=== PATIENT | male | born 1955 | race Hispanic/Latino ===

== ENCOUNTER 2017-02-26 03:07 | Emergency (ER) | payer SELFPAY ==
[2017-02-26 03:07] VITALS: BMI 25.7
[2017-02-26 03:17] VITALS: BP 137/68; PULSE 98; RESP 16; TEMP 98.6; O2SAT 16
--- NOTE | 2017-02-26 04:49 | ED PDOC ---
HPI: Psych/Substance Abuse Time Seen by Provider: 02/26/17 03:25 Chief Complaint (Nursing): Alcohol Ingestion Chief Complaint (Provider): Alcohol Ingestion History Per: Patient History/Exam Limitations: no limitations Onset/Duration Of Symptoms: Hrs (prior to arrival ) Additional Complaint(s): 03:25 Thiago Basurto, 61 year old male self presents to the ED on 02/26/17 for intoxication. Patient is well known to this provider for multiple previous visits. He commits to alcohol usage. Past Medical History Reviewed: Historical Data, Nursing Documentation, Vital Signs Vital Signs: Last Vital Signs Temp 98.6 F 02/26/17 03:15 Pulse 98 H 02/26/17 03:15 Resp 16 02/26/17 03:15 BP 137/68 02/26/17 03:15 Pulse Ox 16 L 02/26/17 03:15 - Medical History PMH: Anxiety, Atrial Fibrillation, Back Problems (spinal stenosis), Cardia Arrhythmia, COPD, Depression, Fractures (FX OF UPPER LEFT ARM AND HAS TITANIUM PLACED), Gall Bladder Disease, Hepatitis (C), Seizures, Sleep Apnea Denies: Alzheimer's Disease, Anemia, Arthritis, Asthma, Bipolar Disorder, Bronchitis, CHF, Crohn's Disease, Dementia, Diverticulitis, Emphysema, HIV, HTN , Hypercholesterolemia, Hyperthyroidism, Hypothyroidism, Kidney Stones, Migraine , Mitral Valve Prolapse, Osteoporosis, Pancreatitis, Parkinson's Disease, Peripheral Edema, Pneumonia, Post Traumatic Stress Disorder, Chronic Kidney Disease, Schizophrenia, Sickle Cell Disease, Sexually Transmitted Disease, TIA - Surgical History Surgical History: Appendectomy, Cholecystectomy Denies: Coronary Stent, Pacemaker - Family History Family History: States: Unknown Family Hx - Immunization History Hx Tetanus Toxoid Vaccination: No Hx Influenza Vaccination: No Hx Pneumococcal Vaccination: No - Home Medications Home Medications: Ambulatory Orders Medication Instructions Recorded Albuterol HFA [Ventolin HFA 90 2 puff IH [id number] #1 puff 07/31/16 mcg/actuation (8 g)] Albuterol HFA [Ventolin HFA 90 1 - 2 puff IH Q6 PRN #1 inhaler 08/02/16 mcg/actuation (8 g)] Albuterol HFA [Ventolin HFA 90 2 puff IH [id number] PRN #0 puff 08/09/16 mcg/actuation (8 g)] Azithromycin [Zithromax] 250 mg PO DAILY #6 tab 08/09/16 - Allergies Allergies/Adverse Reactions: Allergies Allergy/AdvReac Type Severity Reaction Status Date / Time No Known Allergies Allergy Verified 07/31/16 21:16 Review of Systems ROS Statement: Except As Marked, All Systems Reviewed And Found Negative Physical Exam - Reviewed Nursing Documentation Reviewed: Yes Vital Signs Reviewed: Yes - Physical Exam Appears: Positive for: Non-toxic, No Acute Distress Head Exam: Positive for: ATRAUMATIC, NORMOCEPHALIC Skin: Positive for: Normal Color, Warm, Dry Eye Exam: Positive for: Normal appearance ENT: Positive for: Normal ENT Inspection Neck: Positive for: Normal, Painless ROM Cardiovascular/Chest: Positive for: Regular Rate, Rhythm, Chest Non Tender Respiratory: Positive for: Normal Breath Sounds. Negative for: Respiratory Distress Gastrointestinal/Abdominal: Positive for: Normal Exam, Soft. Negative for: Tenderness Back: Positive for: Normal Inspection Extremity: Positive for: Normal ROM. Negative for: Deformity Neurologic/Psych: Positive for: Alert, Oriented (x3), Other (speech is not slurred ) - ECG O2 Sat by Pulse Oximetry: 16 (RA) Pulse Ox Interpretation: Normal Medical Decision Making Medical Decision Makin:25 Initial Impression: 61 year old intoxicated male with a history of Alcoholism Initial Plan: * Accucheck Stat * Alcohol Serum Stat * Reevaluation 5:37 Sobriety Statement: At 5:37 patient is awake, oriented, and alert x3. The patient has a steady gate , clear speech, and is stable for discharge. Condition: Improved Diagnosis: Alcohol Intoxication Scribe Attestation: Documented by Viri Pressley, acting as a scribe for Ted Rodriguez MD. Provider Scribe Attestation: All medical record entries made by the Scribe were at my direction and personally dictated by me. I have reviewed the chart and agree that the record accurately reflects my personal performance of the history, physical exam, medical decision making, and the department course for this patient. I have also personally directed, reviewed, and agree with the discharge instructions and disposition. Disposition - Clinical Impression Clinical Impression: Alcohol intoxication, Alcohol abuse - Disposition Disposition Time: 05:37 Condition: STABLE Instructions: Alcohol Dependence (ED)
== END 2017-02-26 05:45 | disposition home or self-care (01) ==
LOC: H.ER 03:07
DX: F10.129 Alcohol abuse with intoxication, unspecified (principal); F32.9 Major depressive disorder, single episode, unspecified; F41.9 Anxiety disorder, unspecified; G47.30 Sleep apnea, unspecified; I48.91 Unspecified atrial fibrillation; J44.9 Chronic obstructive pulmonary disease, unspecified

== ENCOUNTER 2017-02-26 08:44 | Observation (INO) | payer SELFPAY ==
[2017-02-26 08:48] VITALS: BMI 23.7
[2017-02-26] MEDS ORDERED: Multivitamin (MVI) 10 ML, Folic Acid 1 MG, Thiamine 100 MG in Dextrose 5%/0.45% NS 1,00... IV ONE (09:28)
--- NOTE | 2017-02-26 09:29 | ED PDOC ---
HPI: General Adult Time Seen by Provider: 02/26/17 09:17 Chief Complaint (Nursing): Shortness Of Breath Chief Complaint (Provider): Shortness Of Breath History Per: Patient History/Exam Limitations: no limitations Onset/Duration Of Symptoms: Days Current Symptoms Are (Timing): Still Present Additional Complaint(s): 61 y/o male presents to the emergency department with a complaint of generalized weakness. Associated with being tired, confused (could not find the main avenue), shortness of breath, chills, and intermittent diarrhea. Denies any further complaints or allergies. Patient was in the ER last night and was discharged after sobriety. Of note, patient is homeless and is experiencing these symptoms after non compliance of following up with referred clinics with COPD diagnose. Patient is homeless. Past Medical History Reviewed: Historical Data, Nursing Documentation, Vital Signs Vital Signs: Last Vital Signs Temp 97.8 F 02/26/17 08:47 Pulse 77 02/26/17 08:47 Resp 18 02/26/17 08:47 BP 133/67 02/26/17 08:47 Pulse Ox 96 02/26/17 11:27 - Medical History PMH: Anxiety, Atrial Fibrillation, Back Problems (spinal stenosis), Cardia Arrhythmia, COPD, Depression, Fractures (FX OF UPPER LEFT ARM AND HAS TITANIUM PLACED), Gall Bladder Disease, Hepatitis (C), Seizures, Sleep Apnea Denies: Alzheimer's Disease, Anemia, Arthritis, Asthma, Bipolar Disorder, Bronchitis, CHF, Crohn's Disease, Dementia, Diverticulitis, Emphysema, HIV, HTN , Hypercholesterolemia, Hyperthyroidism, Hypothyroidism, Kidney Stones, Migraine , Mitral Valve Prolapse, Osteoporosis, Pancreatitis, Parkinson's Disease, Peripheral Edema, Pneumonia, Post Traumatic Stress Disorder, Chronic Kidney Disease, Schizophrenia, Sickle Cell Disease, Sexually Transmitted Disease, TIA - Surgical History Surgical History: Appendectomy, Cholecystectomy Denies: Coronary Stent, Pacemaker - Family History Family History: States: Unknown Family Hx - Social History Current smoker - smoking cessation education provided: Yes Alcohol: > 2 Drinks/Day Drugs: Denies - Immunization History Hx Tetanus Toxoid Vaccination: No Hx Influenza Vaccination: No Hx Pneumococcal Vaccination: No - Home Medications Home Medications: Ambulatory Orders Medication Instructions Recorded Albuterol HFA [Ventolin HFA 90 2 puff IH [id number] #1 puff 07/31/ mcg/actuation (8 g)] Albuterol HFA [Ventolin HFA 90 1 - 2 puff IH Q6 PRN #1 inhaler 08/02/16 mcg/actuation (8 g)] Albuterol HFA [Ventolin HFA 90 2 puff IH [id number] PRN #0 puff 08/09/16 mcg/actuation (8 g)] Azithromycin [Zithromax] 250 mg PO DAILY #6 tab 08/09/16 - Allergies Allergies/Adverse Reactions: Allergies Allergy/AdvReac Type Severity Reaction Status Date / Time No Known Allergies Allergy Verified 07/31/16 21:16 Review of Systems ROS Statement: Except As Marked, All Systems Reviewed And Found Negative Constitutional: Positive for: Chills. Negative for: Other (No allergies) Respiratory: Positive for: Shortness of Breath Gastrointestinal: Positive for: Diarrhea (intermittent) Neurological: Positive for: Confusion Physical Exam - Reviewed Nursing Documentation Reviewed: Yes Vital Signs Reviewed: Yes - Physical Exam Appears: Positive for: Non-toxic, No Acute Distress Head Exam: Positive for: ATRAUMATIC, NORMOCEPHALIC Skin: Positive for: Normal Color, Warm, Dry. Negative for: Rash Cardiovascular/Chest: Positive for: Regular Rate, Rhythm. Negative for: Murmur Respiratory: Positive for: Normal Breath Sounds (Good air entry b/l). Negative for: Accessory Muscle Use, Rales, Wheezing, Respiratory Distress Gastrointestinal/Abdominal: Positive for: Normal Exam, Soft. Negative for: Tenderness Extremity: Positive for: Normal ROM. Negative for: Pedal Edema Neurologic/Psych: Positive for: Alert, Oriented (x3) - Laboratory Results Result Diagrams: 02/26/17 09:50 02/26/17 12:25 - ECG O2 Sat by Pulse Oximetry: 99 (RA) Pulse Ox Interpretation: Normal Medical Decision Making Medical Decision Making: Time: 9:17 Initial impression: Generalized weakness with hx of EOTH abuse Initial plan: --Alcohol Serum Stat --COMP Metabolic Panel --ED Urine Dipstick (POC) --CBC w. differential --Dextrose 5% 1,000 ml IV 200 mls/hr --Revaluation Scribe Attestation: Documented by Evon Sears, acting as a scribe for Ree Dhillon MD. Provider Scribe Attestation: All medical record entries made by the Scribe were at my direction and personally dictated by me. I have reviewed the chart and agree that the record accurately reflects my personal performance of the history, physical exam, medical decision making, and the department course for this patient. I have also personally directed, reviewed, and agree with the discharge instructions and disposition. 3.00 p: lab shows improvement in labs even before the 2nd liter of IVF. He is feeling better .Will discharge. Disposition - Clinical Impression Clinical Impression: Dehydration - Patient ED Disposition Is Patient to be Admitted: No Doctor Will See Patient In The: Office Counseled Patient/Family Regarding: Diagnosis, Need For Followup - Disposition Disposition: Routine/Home Disposition Time: 15:22 Condition: IMPROVED - POA Present On Arrival: None
[2017-02-26 10:28] LABS: ALB/GLOB RATIO 1.5 (1.0-2.1); ALCOHOL SERUM 100 mg/dl (0-10); ALKALINE PHOSPHATASE 78 U/L (38-126); ALT/SGPT 32 U/L (21-72); AST/SGOT 40 U/L (17-59); BLOOD UREA NITROGEN 24 mg/dl (9-20); CALCIUM 8.4 mg/dL (8.4-10.2); CARBON DIOXIDE 15 mmol/L (22-30); CHLORIDE 108 mmol/L (98-107); GFR AFRICAN-AMERICAN > 60; GLUCOSE,RANDOM 121 mg/dL (75-110); SODIUM 144 mmol/l (132-148); TOTAL PROTEIN 7.4 G/DL (6.3-8.2)
[2017-02-26 11:00] LABS: BASO # 0.1 K/uL (0.0-0.2); BASO % 0.3 % (0.0-2.0); EOS % 0.2 % (0.0-4.0); HEMATOCRIT 45.4 % (35.0-51.0); LYMPH # 1.3 K/uL (1.0-4.3); LYMPH % 7.6 % (20.0-40.0); MEAN CORPUSCULAR HEMOGLOBIN 29.6 pg (27.0-31.0); MEAN CORPUSCULAR HGB CONC 32.9 g/dL (33.0-37.0); MEAN PLATELET VOLUME 7.3 fl (7.2-11.7); MONO # 0.8 K/uL (0.0-0.8); MONO % 4.8 % (0.0-10.0); NEUT # 14.8 K/uL (1.8-7.0); NEUT % 87.1 % (50.0-75.0); PLATELET COUNT 293 K/uL (130-400); RED CELL DISTRIBUTION WIDTH 15.5 % (11.5-14.5)
[2017-02-26 13:14] LABS: BLOOD UREA NITROGEN 22 mg/dl (9-20); CALCIUM 8.1 mg/dL (8.4-10.2); CARBON DIOXIDE 18 mmol/L (22-30); CHLORIDE 107 mmol/L (98-107); GFR AFRICAN-AMERICAN > 60; GLUCOSE,RANDOM 219 mg/dL (75-110); POTASSIUM 4.2 MMOL/L (3.6-5.0); SODIUM 137 mmol/l (132-148)
--- NOTE | 2017-02-26 13:56 | RAD ---
HISTORY: elevated WBC COMPARISON: Chest x-ray performed 08/09/16 TECHNIQUE: Chest PA and lateral FINDINGS: LUNGS: Large retrocardiac opacity with air-fluid level consistent with hiatal hernia. Please note that chest x-ray has limited sensitivity for the detection of pulmonary masses. PLEURA: No significant pleural effusion identified. No definite pneumothorax . CARDIOVASCULAR: The cardiomediastinal silhouette appears within normal limits of size. OSSEOUS STRUCTURES: No acute osseous abnormality identified. VISUALIZED UPPER ABDOMEN: Unremarkable. OTHER FINDINGS: None. IMPRESSION: Large retrocardiac opacity re-identified with air-fluid level consistent with hiatal hernia.
[2017-02-26] MEDS ORDERED: Sodium Chloride 0.9% 1,000 ML IV STA (14:06)
[2017-02-26 15:14] LABS: NEUTROPHIL 89 % (42-75); TOTAL CELLS COUNTED 100
[2017-02-26 15:18] LABS: LARGE PLATELETS PRESENT
[2017-02-26 16:12] VITALS: BP 132/74; PULSE 86; RESP 20; TEMP 98.6; O2SAT 98
--- NOTE | 2017-03-04 09:20 | CARD ---
APPROVED REPORT EKG Measurement Heart [id number] <Conclusion> Sinus rhythm with premature supraventricular complexes Otherwise normal ECG
== END 2017-02-26 15:25 | disposition home or self-care (01) ==
LOC: H.ER 08:44 → SUPCPDRO 08:44 → H.EROBSV 10:53
PROVIDERS: ADMIT Emergency Medicine; ATTEND Emergency Medicine
DX: E86.0 Dehydration (principal); F17.200 Nicotine dependence, unspecified, uncomplicated; G47.30 Sleep apnea, unspecified; I48.91 Unspecified atrial fibrillation; J44.9 Chronic obstructive pulmonary disease, unspecified; Z59.0 Homelessness; Z91.19 Patient's noncompliance with other medical treatment and regimen

== ENCOUNTER 2017-03-11 19:58 | Observation (INO) | payer SELFPAY ==
[2017-03-11] MEDS ORDERED: TDAP Vaccine 0.5 mL Syr IM ONE (21:06)
--- NOTE | 2017-03-11 21:33 | ED PDOC ---
HPI: General Adult Time Seen by Provider: 03/11/17 20:29 Chief Complaint (Nursing): Trauma History Per: Patient Additional Complaint(s): Pt. brought in by EMS for public intoxication. Pt. admits to drinking alcohol. Pt. does not remember falling. Past Medical History Reviewed: Historical Data, Nursing Documentation, Vital Signs Vital Signs: Last Vital Signs Temp 98.2 F 03/11/17 20:01 Pulse 65 03/12/17 00:32 Resp 16 03/12/17 00:32 BP 129/66 03/12/17 00:32 Pulse Ox 98 03/12/17 00:32 - Family History Family History: States: No Known Family Hx - Allergies Allergies/Adverse Reactions: Allergies Allergy/AdvReac Type Severity Reaction Status Date / Time Unobtainable Allergy Verified 03/11/17 20:04 Review of Systems Review Of Systems: ROS cannot be obtained secondary to pt's inabilty to answer questions. Physical Exam - Reviewed Nursing Documentation Reviewed: Yes Vital Signs Reviewed: Yes - Physical Exam Appears: Positive for: Well, Non-toxic, No Acute Distress Head Exam: Negative for: ATRAUMATIC (superficial abrasion noted to L side of forehead and L zygomatic area with minimal swelling), NORMAL INSPECTION, NORMOCEPHALIC Skin: Positive for: Normal Color, Warm, DRY Eye Exam: Positive for: EOMI, Normal appearance, PERRL ENT: Positive for: Normal ENT Inspection, TM Is/Are (no hemotympanum b/l) Neck: Positive for: Normal, Painless ROM Cardiovascular/Chest: Positive for: Regular Rate, Rhythm Respiratory: Positive for: CNT, Normal Breath Sounds Gastrointestinal/Abdominal: Positive for: Normal Exam, Soft. Negative for: Tenderness Back: Positive for: Normal Inspection. Negative for: L CVA Tenderness, R CVA Tenderness, Vertebral Tenderness (including cervical area) Extremity: Positive for: Normal ROM, Other (L knee with minimal swelling and abrasions without tenderenss) Neurologic/Psych: Positive for: Alert, Oriented, Other (slurred speech). Negative for: Aphasia, Facial Droop - ECG O2 Sat by Pulse Oximetry: 97 ED OBSERVATION Discharge: Yes Date of observation admission: 03/11/17 Time of observation admission: 21:33 - Observation admission statement Patient is being placed in observation because:: ETOH - Progress Note Progress Note: 03/11/17 21:33 CT head, cervical spine, maxillofacial ordered. Pt. attempting to get out of bed. Restraints ordered. Haldol 5mg IM, ativan 2mg IM. 03/12/17 2[address] comfortably. Easily ar[address]able. [address] head, cervical spine, maxillofacial w/o contrast: nothing acute 03/12/17 05:50 Pt. AOx3. Denies knee pain. Pt. with steady unassisted gait. FROM actively of both knees. Disposition - Clinical Impression Clinical Impression: Head injury, Alcohol intoxication - Patient ED Disposition Is Patient to be Admitted: No - Disposition Disposition: Routine/Home Disposition Time: 05:53 Condition: IMPROVED
[2017-03-11 23:21] VITALS: TEMP 98.2
--- NOTE | 2017-03-12 00:29 | CT ---
EXAM: CT Head Without Intravenous Contrast CLINICAL HISTORY: 61 years old, male; Injury or trauma; Fall; Initial encounter; Concussion / head injury TECHNIQUE: Axial computed tomography images of the head/brain without intravenous contrast. This CT exam was performed using one or more of the following dose reduction techniques: automated exposure control, adjustment of the mA and/or kV according to patient size, and/or use of iterative reconstruction technique. Coronal and sagittal reformatted images were created and reviewed. EXAM DATE/TIME: 03/11/2017 9:05 PM COMPARISON: There are no prior studies for comparison. FINDINGS: Artifacts: Streak artifact degrades image quality. Motion artifact degrades image quality. Brain: There is prominence of sulci, gyri and ventricles. There is no midline shift. There are no intra-axial or extra axial mass lesions or areas of hemorrhage. Rebollar-white differentiation is maintained. Ventricles: See above. Bony structures: Cranial vault is intact. There is mild deformity of the nasal bone. Soft tissues: There is left frontal scalp swelling with laceration. Sinuses: There is no acute sinusitis. There is mucoperiosteal thickening in the sinuses. Ears and mastoids: Middle ears and mastoids unremarkable. Orbits: Orbital contents are unremarkable. IMPRESSION: No acute intracranial abnormality
--- NOTE | 2017-03-12 00:36 | CT ---
EXAM: CT Maxillofacial Without Intravenous Contrast CLINICAL HISTORY: 61 years old, male; Injury or trauma; Fall; Initial encounter; Concussion /head injury; Without loss of consciousness TECHNIQUE: Axial computed tomography images of the face without intravenous contrast. This CT exam was performed using one or more of the following dose reduction techniques: automated exposure control, adjustment of the mA and/or kV according to patient size, and/or use of iterative reconstruction technique. Coronal and sagittal reformatted images were created and reviewed. EXAM DATE/TIME: 03/11/2017 9:06 PM COMPARISON: There are no prior studies for comparison. FINDINGS: Bones/joints: There is deformity of the left nasal bone, age indeterminate. There are no facial bone fractures. Upper cervical spine is difficult to evaluate due to patient positioning. Soft tissues: There is left frontal scalp swelling. There are no facial masses. Orbits: Orbital contents are unremarkable. Sinuses: There is mucoperiosteal thickening in the sinuses. There are no air-fluid levels. There is a small right frontal osteoma. Brain: No focal abnormalities are seen in visualized portion of the brain. Other findings: Motion artifact degrades image quality. IMPRESSION: Age-indeterminate deformity of the nasal bone, facial bones are otherwise unremarkable; minimal sinus disease
--- NOTE | 2017-03-12 00:42 | CT ---
EXAM: CT Cervical Spine Without Intravenous Contrast CLINICAL HISTORY: 61 years old, male; Injury or trauma; Fall; Initial encounter; Concussion /head injury TECHNIQUE: Axial computed tomography images of the cervical spine without intravenous contrast. This CT exam was performed using one or more of the following dose reduction techniques: automated exposure control, adjustment of the mA and/or kV according to patient size, and/or use of iterative reconstruction technique. Coronal and sagittal reformatted images were created and reviewed. EXAM DATE/TIME: 03/11/2017 9:06 PM COMPARISON: There are no prior studies for comparison. FINDINGS: Limitations: Evaluation of the cervical spine is limited by patient positioning. Vertebrae: There is straightening of the cervical lordosis. There is no prevertebral soft tissue swelling. Vertebral bodies are intact. Posterior elements are intact. Allowing for bending and rotation, facet joints align anatomically. There is mild disc space narrowing posteriorly at multiple levels. There is C5-6 disc disease with endplate sclerosis and Schmorl's nodes. Mineralization is normal Discs/spinal canal/neural foramina: See above. Soft tissues: See above. Lung apices: Unremarkable Airway: Airway is patent. IMPRESSION: Limited by patient positioning, no fracture seen
[2017-03-12 06:05] VITALS: BP 136/79; PULSE 68; RESP 17; O2SAT 98
== END 2017-03-12 05:53 | disposition home or self-care (01) ==
LOC: EDBD 19:58 → H.ER 19:58 → MERGE 21:07 → H.EROBSV 21:07
PROVIDERS: ADMIT Emergency Medicine; ATTEND Emergency Medicine
DX: S09.90XA Unspecified injury of head, initial encounter (principal); F10.129 Alcohol abuse with intoxication, unspecified; Y90.8 Blood alcohol level of 240 mg/100 ml or more
CPT/HCPCS: 36415; 70450; 70486; 72125; 82948; 90471; 90715; 96372; 99285; G0378; G0480; J1630; J2060

== ENCOUNTER 2017-07-02 09:43 | Emergency (ER) | payer MEDICAID ==
[2017-07-02 09:44] VITALS: BMI 23.7
[2017-07-02] MEDS ORDERED: Iohexol 240 (50 ml) PO ONE (09:58)
[2017-07-02] MEDS ORDERED: Sodium Chloride 0.9% 1,000 ML IV STA (09:58)
[2017-07-02] MEDS ORDERED: Iohexol 240 (50 ml) ONE (10:26)
[2017-07-02 10:29] LABS: BASO % 0.3 % (0.0-2.0); EOS # 0.2 K/uL (0.0-0.7); HEMATOCRIT 45.8 % (35.0-51.0); LYMPH # 1.5 K/uL (1.0-4.3); LYMPH % 19.1 % (20.0-40.0); MEAN CELL VOLUME 90.9 fl (80.0-94.0); MEAN CORPUSCULAR HEMOGLOBIN 30.3 pg (27.0-31.0); MEAN CORPUSCULAR HGB CONC 33.4 g/dL (33.0-37.0); MEAN PLATELET VOLUME 7.9 fl (7.2-11.7); MONO # 0.6 K/uL (0.0-0.8); MONO % 7.8 % (0.0-10.0); NEUT # 5.4 K/uL (1.8-7.0); NEUT % 70.8 % (50.0-75.0); NRBC % 0.1 % (0.0-0.0); RED CELL DISTRIBUTION WIDTH 14.9 % (11.5-14.5)
--- NOTE | 2017-07-02 10:31 | ED PDOC ---
HPI: Abdomen Time Seen by Provider: 07/02/17 09:53 Chief Complaint (Nursing): Abdominal Pain Chief Complaint (Provider): Inguinal Pain History Per: Patient History/Exam Limitations: no limitations Onset/Duration Of Symptoms: Hrs Current Symptoms Are (Timing): Still Present Additional Complaint(s): Thiago Basurto, a 61 year old male, presents to the ED complaining of inguinal pain due to hernia. The patient reports that he was unable to reduce this morning. Denies nausea, vomiting. Patient is able to past gas. Past Medical History Reviewed: Historical Data, Nursing Documentation, Vital Signs - Medical History PMH: Anxiety, Atrial Fibrillation, Back Problems (spinal stenosis), Cardia Arrhythmia, COPD, Depression, Fractures (FX OF UPPER LEFT ARM AND HAS TITANIUM PLACED), Gall Bladder Disease, Hepatitis (C), Seizures, Sleep Apnea Denies: Alzheimer's Disease, Anemia, Arthritis, Asthma, Bipolar Disorder, Bronchitis, CHF, Crohn's Disease, Dementia, Diverticulitis, Emphysema, HIV, HTN , Hypercholesterolemia, Hyperthyroidism, Hypothyroidism, Kidney Stones, Migraine , Mitral Valve Prolapse, Osteoporosis, Pancreatitis, Parkinson's Disease, Peripheral Edema, Pneumonia, Post Traumatic Stress Disorder, Chronic Kidney Disease, Schizophrenia, Sickle Cell Disease, Sexually Transmitted Disease, TIA - Surgical History Surgical History: Appendectomy, Cholecystectomy Denies: Coronary Stent, Pacemaker - Family History Family History: States: Unknown Family Hx - Immunization History Hx Tetanus Toxoid Vaccination: No Hx Influenza Vaccination: No Hx Pneumococcal Vaccination: No - Home Medications Home Medications: Ambulatory Orders Medication Instructions Recorded Albuterol HFA [Ventolin HFA 90 2 puff IH [id number] #1 puff 07/31/16 mcg/actuation (8 g)] Albuterol HFA [Ventolin HFA 90 1 - 2 puff IH Q6 PRN #1 inhaler 08/02/16 mcg/actuation (8 g)] Albuterol HFA [Ventolin HFA 90 2 puff IH [id number] PRN #0 puff 08/09/16 mcg/actuation (8 g)] Azithromycin [Zithromax] 250 mg PO DAILY #6 tab 08/09/16 Ciprofloxacin HCl [Cipro] 500 mg PO BID #20 tab 07/02/17 - Allergies Allergies/Adverse Reactions: Allergies Allergy/AdvReac Type Severity Reaction Status Date / Time No Known Allergies Allergy Verified 07/31/16 21:16 Review of Systems ROS Statement: Except As Marked, All Systems Reviewed And Found Negative Genitourinary Male: Positive for: Other (Inguinal Pain due to Hernia.) Physical Exam - Reviewed Nursing Documentation Reviewed: Yes Vital Signs Reviewed: Yes - Physical Exam Appears: Positive for: Non-toxic, No Acute Distress Head Exam: Positive for: ATRAUMATIC, NORMAL INSPECTION, NORMOCEPHALIC Skin: Positive for: Normal Color, Warm, Dry. Negative for: Rash Eye Exam: Positive for: Normal appearance, EOMI, PERRL. Negative for: Nystagmus ENT: Positive for: Normal ENT Inspection Neck: Positive for: Normal, Painless ROM, Supple Cardiovascular/Chest: Positive for: Regular Rate, Rhythm, Chest Non Tender. Negative for: Tachycardia Respiratory: Positive for: Normal Breath Sounds. Negative for: Rales, Rhonchi, Wheezing, Respiratory Distress Gastrointestinal/Abdominal: Positive for: Bowel Sounds, Soft, Hernia (right inguinal hernia protruding; tender and able to reduce.). Negative for: Tenderness, Guarding, Rebound Extremity: Positive for: Normal ROM. Negative for: Tenderness, Deformity, Swelling Neurologic/Psych: Positive for: Alert, Oriented - Laboratory Results Result Diagrams: 07/02/17 10:20 07/02/17 10:20 Medical Decision Making Medical Decision Makin Initial Impression: 61 year old male presenting with inguinal hernia Initial plan: * CT ABD/PELVIS PO and IV Contrast * Comp metabolic Panel * CBC * NS 1000mls IV 1000mls/hr * Omnipaque 50ml PO * Reevaluation Scribe Attestation Documented by Adelina Sinclair acting as a scribe for Charles Dean MD. Provider Attestation: All medical record entries made by the Scribe were at my direction and personally dictated by me. I have reviewed the chart and agree that the record accurately reflects my personal performance of the history, physical exam, medical decision making, and the department course for this patient. I have also personally directed, reviewed, and agree with the discharge instructions and disposition. Disposition - Clinical Impression Clinical Impression: Inguinal hernia without obstruction or gangrene, Colitis - Patient ED Disposition Is Patient to be Admitted: No Counseled Patient/Family Regarding: Studies Performed, Diagnosis, Need For Followup, Rx Given - Disposition Referrals: [facility] [Outside] Disposition: Routine/Home Disposition Time: 13:57 Condition: FAIR Prescriptions: Ciprofloxacin HCl [Cipro] 500 mg PO BID #20 tab Instructions: Inguinal Hernia (ED), Colitis (ED) Forms: [employer] (Indonesian)
[2017-07-02 10:35] LABS: WHITE BLOOD COUNT 7.6 K/uL (4.8-10.8)
[2017-07-02 10:42] LABS: ALB/GLOB RATIO 1.4 (1.0-2.1); ALKALINE PHOSPHATASE 60 U/L (38-126); ALT/SGPT 27 U/L (21-72); AST/SGOT 27 U/L (17-59); BILIRUBIN,TOTAL 1.7 mg/dl (0.2-1.3); BLOOD UREA NITROGEN 16 mg/dl (9-20); CALCIUM 9.1 mg/dL (8.4-10.2); CARBON DIOXIDE 25 mmol/L (22-30); CHLORIDE 108 mmol/L (98-107); GFR AFRICAN-AMERICAN > 60; GLUCOSE,RANDOM 84 mg/dL (75-110); SODIUM 148 mmol/l (132-148)
[2017-07-02 10:43] LABS: POTASSIUM 5.4 MMOL/L (3.6-5.0)
[2017-07-02] MEDS ORDERED: Iohexol 300 100 ML IJ ONE (13:01)
[2017-07-02] MEDS ORDERED: Sodium Chloride 0.9% 50 ML IV ONE (13:01)
--- NOTE | 2017-07-02 13:55 | CT ---
PROCEDURE: CT Abdomen and Pelvis with contrast HISTORY: abd pain COMPARISON: Comparison is made to 05/18/2016 TECHNIQUE: Contrast dose: 95 cc of Omnipaque 300. Axial and reformatted coronal and sagittal CT images of the abdomen and pelvis were obtained after IV and oral contrast administration. Radiation dose: Total exam DLP = 857.03 mGy-cm. This CT exam was performed using one or more of the following dose reduction techniques: Automated exposure control, adjustment of the mA and/or kV according to patient size, and/or use of iterative reconstruction technique. FINDINGS: LOWER THORAX: No evidence of acute pathology at the lung bases. Again seen is large hiatus hernia contains the entire stomach. The large hiatus hernia also contains part of the transverse colon. LIVER: No evidence of acute pathology at the liver. GALLBLADDER AND BILE DUCTS: Unremarkable. PANCREAS: Unremarkable. No gross lesion or ductal dilatation. SPLEEN: Unremarkable. ADRENALS: Unremarkable. No mass. KIDNEYS AND URETERS: Unremarkable. No hydronephrosis. No solid mass. VASCULATURE: Unremarkable. No aortic aneurysm. BOWEL: There is diffuse thickening of the cecum and proximal ascending colon seen at the right mid abdomen image 95 series 3. The possibility of colitis should be considered. No evidence of high-grade bowel obstruction. Segmental portion of the transverse colon is herniated in the large hiatus hernia without evidence of obstruction or cart serration APPENDIX: There is no evidence of appendicitis. PERITONEUM: There is swirled appearance of the mesenteric artery specially at the mid and upper abdomen. . No free fluid. No free air. LYMPH NODES: Mildly enlarged mesenteric lymph nodes seen at the mid and upper abdomen. BLADDER: Unremarkable. REPRODUCTIVE: Prostate is mildly enlarged. BONES: Heterogeneous attenuation of the osseous structure noted without evidence of acute pathology. Severe degenerative changes at L5-S1 noted. OTHER FINDINGS: None. IMPRESSION: Diffuse wall thickening of the cecum and proximal ascending colon may represent colitis. Mild to moderate wall thickening of the terminal ileum also noted. Mildly enlarged mesenteric lymph nodes at the mid and upper abdomen noted. Large hiatus hernia contains stomach and portion of transverse colon without evidence of obstruction or incarceration. swirled appearance of the mesenteric artery at the mid to upper abdomen suspicious for internal hernia.
== END 2017-07-02 15:06 | disposition home or self-care (01) ==
LOC: H.ER 09:43
DX: K40.90 Unilateral inguinal hernia, without obstruction or gangrene, not specified as recurrent (principal)
CPT/HCPCS: 74177; 80053; 85025; 99282; J7040; Q9966; Q9967

== ENCOUNTER 2018-02-08 01:45 | Emergency (ER) | payer OTHER ==
[2018-02-08 01:45] VITALS: BMI 25.7
--- NOTE | 2018-02-08 02:10 | ED PDOC ---
HPI: Psych/Substance Abuse Chief Complaint (Provider): ETOH History Per: Patient, EMS History/Exam Limitations: intoxication Additional Complaint(s): 62 y/o male brought in by EMS for alcohol intoxication. [place]y [place]. Patient agitated upon arrival, uncooperative. 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 <Kika Haynes C - Last Filed: 02/08/18 05:48> <Therese Redmond A - Last Filed: 02/09/18 11:38> Chief Complaint (Nursing): Alcohol Ingestion Past Medical History Reviewed: Historical Data, Nursing Documentation, Vital Signs Vital Signs: Last Vital Signs Temp 98.3 F 02/08/18 01:51 Pulse 75 02/08/18 01:51 Resp 17 02/08/18 01:51 BP 95/63 L 02/08/18 01:51 Pulse Ox 96 02/08/18 01:51 - Medical History PMH: Anxiety, Atrial Fibrillation, Back Problems (spinal stenosis), Cardia Arrhythmia, COPD, Depression, Fractures (FX OF UPPER LEFT ARM AND HAS TITANIUM PLACED), Gall Bladder Disease, Hepatitis (C), Seizures, Sleep Apnea Denies: Alzheimer's Disease, Anemia, Arthritis, Asthma, Bipolar Disorder, Bronchitis, CHF, Crohn's Disease, Dementia, Diverticulitis, Emphysema, HIV (as per patient), HTN, Hypercholesterolemia, Hyperthyroidism, Hypothyroidism, Kidney Stones, Migraine, Mitral Valve Prolapse, Osteoporosis, Pancreatitis, Parkinson's Disease, Peripheral Edema, Pneumonia, Post Traumatic Stress Disorder , Chronic Kidney Disease, Schizophrenia, Sickle Cell Disease, Sexually Transmitted Disease, TIA - Surgical History Surgical History: Appendectomy, Cholecystectomy Denies: Coronary Stent, Pacemaker - Family History Family History: States: Unknown Family Hx - Immunization History Hx Tetanus Toxoid Vaccination: No Hx Influenza Vaccination: No Hx Pneumococcal Vaccination: No <Kika Haynes - Last Filed: 02/08/18 05:48> Vital Signs: Last Vital Signs Temp 98.0 F 02/08/18 13:45 Pulse 78 02/08/18 13:45 Resp 16 02/08/18 13:45 BP 122/85 02/08/18 13:45 Pulse Ox 96 02/08/18 13:45 <Therese Redmond A - Last Filed: 02/09/18 11:38> - Home Medications Home Medications: Ambulatory Orders Medication Instructions Recorded Azithromycin [Z-Claude] 250 mg PO DAILY #6 tab 10/21/17 - Allergies Allergies/Adverse Reactions: Allergies Allergy/AdvReac Type Severity Reaction Status Date / Time No Known Allergies Allergy Verified 07/31/16 21:16 Review of Systems ROS Statement: Except As Marked, All Systems Reviewed And Found Negative <Kika Haynes - Last Filed: 02/08/18 05:48> Physical Exam - Reviewed Nursing Documentation Reviewed: Yes Vital Signs Reviewed: Yes - Physical Exam Appears: Positive for: Well, Non-toxic, No Acute Distress Head Exam: Positive for: ATRAUMATIC, NORMAL INSPECTION, NORMOCEPHALIC Skin: Positive for: Normal Color Eye Exam: Positive for: Normal appearance ENT: Positive for: Normal ENT Inspection Cardiovascular/Chest: Positive for: Regular Rate, Rhythm Respiratory: Positive for: Normal Breath Sounds Pulses-Radial (L): 2+ Pulses-Radial (R): 2+ Extremity: Positive for: Normal ROM Neurologic/Psych: Positive for: Alert, Oriented <Kika Haynes - Last Filed: 02/08/18 05:48> - Laboratory Results Result Diagrams: 02/08/18 02:45 02/08/18 02:45 - ECG O2 Sat by Pulse Oximetry: 96 - Progress ED Course And Treament: accucheck, labs, xray EXAM: XR Right Shoulder Complete, 2 or More Views CLINICAL HISTORY: 62 years old, male; Pain; Shoulder; Right; Additional info: Pain. Patient unable to cooperate for exam TECHNIQUE: Two or more views of the right shoulder. COMPARISON: No relevant prior studies available. FINDINGS: Abnormal morphology to the humeral head with suspected underlying fracture. Calcific densities in the bursa/soft tissues noted superiorly and laterally measuring up to 2.1 cm. No dislocation. Degenerative changes in the acromioclavicular joints. The visualized right hemithorax is grossly clear IMPRESSION: Suspected fracture/abnormal morphology of the right humeral head Indeterminate calcifications/bodies in the bursa/soft tissues. Further evaluation with CT is recommended <Kika Haynes - Last Filed: 02/08/18 05:48> - Laboratory Results Result Diagrams: 02/08/18 02:45 02/08/18 02:45 <Threese Redmond - Last Filed: 02/09/18 11:38> Disposition - Disposition Disposition Time: 06:00 Patient Signed Over To: Therese Redmond Handoff Comments: pending sobriety <Kika Haynes - Last Filed: 02/08/18 05:48> - Patient ED Disposition Is Patient to be Admitted: Transfer of Care - Disposition Disposition: Transfer of Care Patient Signed Over To: Miguel Leonardo <Therese Redmond - Last Filed: 02/09/18 11:38> - Clinical Impression Clinical Impression: Alcohol abuse with uncomplicated intoxication - Disposition Referrals: [facility] [Outside] - 02/09/18 Condition: STABLE Additional Instructions: Return if not better in 3 days. Instructions: Alcohol Abuse and Alcoholism (DC) Print Language: CITIZEN OF [place]
[2018-02-08 02:55] LABS: BASO # 0.1 K/uL (0.0-0.2); BASO % 1.3 % (0.0-2.0); EOS % 0.3 % (0.0-4.0); HEMOGLOBIN 16.5 g/dL (12.0-18.0); LYMPH # 2.1 K/uL (1.0-4.3); LYMPH % 22.8 % (20.0-40.0); MEAN CORPUSCULAR HEMOGLOBIN 31.7 pg (27.0-31.0); MEAN CORPUSCULAR HGB CONC 33.4 g/dL (33.0-37.0); MEAN PLATELET VOLUME 7.3 fl (7.2-11.7); MONO # 0.7 K/uL (0.0-0.8); MONO % 7.6 % (0.0-10.0); NEUT # 6.2 K/uL (1.8-7.0); NRBC % 0.2 % (0.0-0.0); RBC 5.2 Mil/uL (4.40-5.90); RED CELL DISTRIBUTION WIDTH 13.8 % (11.5-14.5); WHITE BLOOD COUNT 9.2 K/uL (4.8-10.8)
[2018-02-08 03:24] LABS: BLOOD UREA NITROGEN 30 mg/dl (9-20); GFR AFRICAN-AMERICAN > 60; GFR NON-AFRICAN AMERICAN > 60
[2018-02-08 03:25] LABS: ALB/GLOB RATIO 1.3 (1.0-2.1); ALBUMIN 4.3 g/dL (3.5-5.0); ALT/SGPT 34 U/L (21-72); AST/SGOT 27 U/L (17-59); CALCIUM 8.7 mg/dL (8.4-10.2)
[2018-02-08 03:26] LABS: BARBITURATES, UR NEGATIVE (NEGATIVE); BENZODIAZEPINES, UR NEGATIVE (NEGATIVE); OPIATES, UR NEGATIVE (NEGATIVE); PHENCYCLIDINE, UR NEGATIVE (NEGATIVE)
[2018-02-08] MEDS ORDERED: Sodium Chloride 0.9% 1,000 ML IV STA (03:45)
[2018-02-08] MEDS ORDERED: Multivitamin (MVI) 10 ML, Thiamine 100 MG, Folic Acid 1 MG in Sodium Chloride 0.9% 1,00... IV ONE (03:45)
[2018-02-08 05:52] VITALS: O2SAT 96
--- NOTE | 2018-02-08 07:45 | ED PDOC ---
- Laboratory Results Result Diagrams: 02/08/18 02:45 02/08/18 02:45 Interpretation Of Abn Labs: bun 30 - ECG O2 Sat by Pulse Oximetry: 96 Pulse Ox Interpretation: Normal - Progress ED Course And Treament: 825: Sugar 43. Pt. aggressive. Will put IV line and give D50. IV D5. 1343: Stable. Sugar maintained. AAOx3. Crisis saw pt. for suicidal ideation. Does not meet criteria for psych admit. Pt. ambulated with no issues. Fu with pcp. Low glucose likely related to etoh abuse. Medical Decision Making Medical Decision Makin:00 Took over care from Dr. Redmond. Pt is 62 y/o pending sobriety. Scribe Attestation: Documented by Chai Owens, acting as a scribe for Miguel Leonardo MD. Provider Scribe Attestation: All medical record entries made by the Scribe were at my direction and personally dictated by me. I have reviewed the chart and agree that the record accurately reflects my personal performance of the history, physical exam, medical decision making, and the department course for this patient. I have also personally directed, reviewed, and agree with the discharge instructions and disposition. Disposition - Clinical Impression Clinical Impression: Alcohol abuse with uncomplicated intoxication - POA Present On Arrival: None - Disposition Referrals: [facility] [Outside] - 02/09/18 Disposition: Routine/Home Disposition Time: 13:44 Condition: STABLE Additional Instructions: Return if not better in 3 days. Instructions: Alcohol Abuse and Alcoholism (DC) Print Language: CHINESE
--- NOTE | 2018-02-08 08:08 | RAD ---
PROCEDURE: Radiographs of the Right Shoulder HISTORY: pain COMPARISON: No prior. FINDINGS: BONES: There is a comminuted impacted fracture of the proximal epiphysis and metaphysis of the right humerus without dislocation apparent. Advanced degenerative changes seen the acromioclavicular joint comprised of marked joint space narrowing and cortical sclerosis as well as marginal osteophyte development. JOINTS: As above. SOFT TISSUES: Normal. OTHER FINDINGS: None. IMPRESSION: Comminuted impacted fracture proximal right humerus without dislocation.
[2018-02-08] MEDS ORDERED: Dextrose 50% SYRINGE Inj (50 ml) IVP STA (08:25)
[2018-02-08] MEDS ORDERED: Multivitamin (MVI) 10 ML, Folic Acid 1 MG, Thiamine 100 MG in Dextrose 5%/0.45% NS 1,00... IV ONE (08:28)
[2018-02-08 14:06] VITALS: BP 122/85; PULSE 78; RESP 16; TEMP 98
== END 2018-02-08 14:40 | disposition home or self-care (01) ==
LOC: H.ER 01:45
DX: F10.120 Alcohol abuse with intoxication, uncomplicated (principal); Z47.89 Encounter for other orthopedic aftercare; F32.9 Major depressive disorder, single episode, unspecified; F41.9 Anxiety disorder, unspecified; I48.91 Unspecified atrial fibrillation; J44.9 Chronic obstructive pulmonary disease, unspecified
CPT/HCPCS: 73030; 80053; 80320; 80324; 80345; 80346; 80349; 80353; 80358; 80361; 82948; 83992; 85025; 96374; 99285; J3411; J7042